=== PATIENT | male | born 1980 | race Caucasian/White ===

== ENCOUNTER 2016-11-21 04:29 | Emergency (ER) | payer MEDICAID ==
--- NOTE | 2016-11-21 04:52 | ED Physician Chart ---
Chief Complaint/HPI - Patient Information Date Seen:: 11/21/16 Time Seen:: 04:35 Chief Complaint:: Alcohol intoxication History of Present Illness:: 36-year-old male brought in by ambulance after he was found loitering and drunk in public, has acute, constant, moderate, alcohol intoxication. Associated drunk in public. Patient denies any pain, numbness, tingling, nausea, vomiting , dysuria, gross hematuria. Allergies:: Allergies Allergy/AdvReac Type Severity Reaction Status Date / Time No Known Allergies Allergy Verified 11/21/16 04:36 Vitals:: Vital Signs - 8 hr 11/21/16 04:30 Temp 97.7 F HR 87 RR 18 BP 117/71 O2 Sat % 98 Historian:: Patient, EMS Review:: Nurse's Note Reviewed Review of Systems - Review of Systems Other: Complete system review otherwise unremarkable except as noted in history of present illness. Past Medical History - Past Medical History Past Medical History: No significant medical hx Family History: None Social History: Non Smoker, Alcohol, No Drug Use, Homeless Surgical History: None Psychiatricy History: None Medication: None Family Medical History - Family Member Mother History Unknown: Yes Physical Exam - Physical Examination Other:: INITIAL VITAL SIGNS: Reviewed by me GENERAL: Alert and interactive. No acute distress HEAD: Head is normocephalic and atraumatic EYES: EOMI. PERRL. No scleral icterus. No conjunctival injection ENT: Moist mucous membranes. NECK: Supple. No masses. Full range of motion RESPIRATORY: No tachypnea. Clear breath sounds bilaterally. No wheezing, rales, or rhonchi CV: Regular rate and rhythm. No murmurs, rubs, or gallops ABDOMEN: Soft, non-distended, non-tender. No guarding. No rebound. No masses. EXTREMITIES: No deformity. No cyanosis. No edema. SKIN: Warm and dry. No obvious rashes. NEUROLOGIC: Alert and oriented. Face is symmetric. Speech is normal. Moves all extremities equally. Motor and sensory distally intact. ED Septic Shock - . Is Septic Shock (SBP<90, OR Lactate>4 mmol\L) present?: No - <6hrs of presentation: Vital Signs: Vital Signs - 8 hr 11/21/16 04:30 Temp 97.7 F HR 87 RR 18 BP 117/71 O2 Sat % 98 Reassessment (Disposition) - Reassessment Reassessment:: 36-year-old male presents with alcohol intoxication and being in public drunkenness loitering. Patient is alert and oriented 4. No gait abnormality noted. Patient has no complaints. She has medically cleared. Recommended follow-up with some type of primary care in the free clinic or primary care physician within one to 2 days. Return to precautions were given. Patient understands and agrees with plan. Reassessment Condition:: Improved - Aftercare/Follow up Instructions Aftercare/Follow-Up Instructions:: Counseled pt regarding lab results/diagnosis & need follow up, Refer to Discharge Instructions - Patient Disposition Discharge/Transfer:: Home Time:: 04:51 Condition at Disposition:: Improved ED Discharge Plan - Patient Disposition Admit/Discharge/Transfer: PT DISCHARGED HOME Condition at Disposition: Improved Instructions: Alcohol Intoxication
== END 2016-11-21 06:40 | disposition home or self-care (01) ==
LOC: ER 04:29
DX: F10.129 Alcohol abuse with intoxication, unspecified (principal); Z59.0 Homelessness
CPT/HCPCS: Z7502